=== PATIENT | male | born 1970 | race Hispanic/Latino ===

== ENCOUNTER 2017-07-08 11:13 | Day surgery (SDC) | payer BC ==
[2017-07-08] MEDS ORDERED: NA CHLORIDE 0.9% 1,000 ML ONE (11:43)
[2017-07-08] MEDS ORDERED: CEFAZOLIN/SWI 1gm 1 GM/10 ML SYR ONE (11:44)
[2017-07-08 11:49] LABS: Absolute Lymphocytes (CBC) 1.8 K/uL (0.7-4.9); Absolute Monocytes 0.6 K/uL (0.1-1.3); Absolute Neutrophil 4.5 K/uL (1.8-8.0); Basophils % 0.4 % (0-1.3); Eosinophils % 1.7 % (0-4.4); Hematocrit 39.9 % (39.6-49.0); Lymphocytes % 25.2 % (15.3-44.8); MCH 28.3 pg (27.0-35.0); MCV 85.8 fL (80-100); MPV 7.3 fL (7.6-11.3); RBC Red Blood Cell Count 4.65 M/uL (4.33-5.43)
--- NOTE | 2017-07-08 12:06 | RAD REPORT ---
EXAM DESCRIPTION: RAD - Chest Pa And Lat (2 Views) - 07/08/2017 11:55 am CLINICAL HISTORY: Preop chest COMPARISON: None. TECHNIQUE: PA and lateral views of the chest were obtained. FINDINGS: The lungs are clear. Heart size is normal and central vasculature is within normal limit s. No pleural effusion or pneumothorax seen. No acute bony finding noted. No aortic abnormality. IMPRESSION: No acute cardiopulmonary process.
[2017-07-08 12:18] LABS: BUN Blood Urea Nitrogen 10 mg/dL (6-20); Bicarbonate 30 mEq/L (21-31); Glucose Level 157 mg/dL (65-120); Potassium 4.2 mEq/L (3.6-5.0); Sodium Level 138 mEq/L (135-145)
--- NOTE | 2017-07-08 12:25 | EKG ---
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
[2017-07-08] MEDS ORDERED: PROPOFOL 200 MG/20 ML VIAL IV ONE (12:34)
[2017-07-08] MEDS ORDERED: MIDAZOLAM HCL 2 MG/2 ML INJ ONE (12:35)
[2017-07-08] MEDS ORDERED: FENTANYL CITR 100 MCG/2 ML ONE (12:35)
[2017-07-08] MEDS ORDERED: LIDOCAINE 1% MPF 2 ML AMPULE ONE (12:36)
--- NOTE | 2017-07-08 14:19 | P.BOP ---
Preoperative diagnosis: Perianal abscess Postoperative diagnosis: same Primary procedure: 1. EUA, 2. ANoscopy, 3. Rigid proctoscopy, Secondary procedure: 4. incision and drainage of complex perianal abscess Estimated blood loss: <10cc Specimen: pus Findings: see dictation Anesthesia: General Complications: None Drain(s): Other Transferred to: Recovery Room Condition: Good
[2017-07-08] MEDS ORDERED: PROMETHAZINE 25 MG/ML VIAL ONE (14:32)
[2017-07-08] MEDS ORDERED: MEPERIDINE HCL 25 MG/0.5 ML ONE (14:33)
[2017-07-08] MEDS ORDERED: HYDROCODONE/APAP 10/325 TAB ONE (15:23)
--- NOTE | 2017-07-09 00:28 | OP ---
Date of Procedure: 07/08/2017 Surgeon: Jared Spencer MD Preoperative Diagnoses: 1.Perianal abscess. 2.Diabetes. Postoperative Diagnoses: 1.Perianal abscess. 2.Diabetes. Procedures: Examination under anesthesia, anoscopy, rigid proctoscopy, incision and drainage of comp jessica perianal abscess. Estimated Blood Loss: Less than 10 cc. Specimen: Pus. Findings: Patient has anterior to the perianal region, an abscess with multiple loculations going to the perineum. Scrotum is not involved. I cannot see any fistula. The patient has internal and ext ernal hemorrhoids, but they are not bleeding at this moment. No tumor seen. Indications: This is the case of a 46-year-old patient, who came to us with perianal tenderness, sen t to us for incision and drainage of perianal abscess. Benefits, alternatives, and risks were fully explained which include but are not limited to infection, bleeding, damage to adjacent structures, an esthesia complication, TN, and even . He also understands this may not relieve any symptoms. H e might need more than one surgical intervention. He understands he will require wound care. He und erstand risks of anal stricture and incontinence and recurrence. Patient signed the consent. Description Of Procedure: The patient was brought to the operating room, placed in supine position. Anesthesia was achieved without complication. Perianal area was prepped and draped in usual sterile fashion. Placed in lithotomy position. Time-out was called. Rectal examination was done followed by rigid proctoscopy all the way to 15 cm limited by amount of stool present. We do not see any fist ulas, tumors, or any open ulcers in the perirectal region. The patient has an anterior perianal absc ess. We cannot see any opening into the rectum. At that moment, I proceeded to place an anoscope an d a window on the side. Once again, looking for the same, but we could not find any tumors or any fi stulas, although the inflammation is so severe that it may well interfere with the finding of that fi stula if there is anything there. At that moment, I proceeded to make an incision on the anterior pe rianal region. A complex abscess was found with multiple loculations. They were explored and opened , irrigated, and cultured. Hemostasis was obtained and then packing was done. It tracked into the p erineal region, does not involve the scrotum. The area was covered with sterile dressings. The florencia ent tolerated the procedure well. The patient was sent to recovery in stable condition. DISCHARGE SUMMARY Diagnosis: Perianal abscess. Procedures: EUA, anoscopy, proctoscopy, incision and drainage of a complex perianal abscess. Disposition: Home. Activity: As tolerated. No heavy lifting. Followup: Follow up in office in 1 week. Call for appointment [phone]. Instructions: Keep area dry for 24 hours. Tomorrow, he is going to take these dressings off, going to the shower and then pack with wet-to-dry normal saline. The patient's was fully explained ho w to do so. JD/HARPREET Voice ID: [id number] Report ID: [id number]
== END 2017-07-08 17:35 | disposition home or self-care (01) ==
LOC: OR 11:13
PROVIDERS: ATTEND Surgery
PROC: 0DJD8ZZ Inspection of Lower Intestinal Tract, Via Natural or Artificial Opening Endoscopic (ICD-10-PCS; 2017-07-08)
PROC: 0D9Q0ZX Drainage of Anus, Open Approach, Diagnostic (ICD-10-PCS; principal; 2017-07-08 13:15)
DX: K61.0 Anal abscess (principal); K64.8 Other hemorrhoids; K64.4 Residual hemorrhoidal skin tags; E11.9 Type 2 diabetes mellitus without complications; Z79.4 Long term (current) use of insulin; Z83.3 Family history of diabetes mellitus
CPT/HCPCS: 36415; 71046; 80048; 82962; 85025; 87070; 87075; 87205; 93005; J0690; J2001; J2175; J2250; J2550; J3010; J7030